=== PATIENT | female | born 1990 | race African-American/Black ===

== ENCOUNTER 2018-02-10 21:22 | Emergency (ER) | payer MEDICAID ==
[~2018-02-10] VITALS: Ht 172.7 cm; Wt 99.0 kg
[2018-02-10 21:27] VITALS: BP 119/72
== END 2018-02-11 01:19 | disposition left against medical advice (07) ==
LOC: ER 21:22
DX: Z53.21 Procedure and treatment not carried out due to patient leaving prior to being seen by health care provider (principal)

== ENCOUNTER 2018-02-11 02:06 | Emergency (ER) | payer MEDICAID ==
[~2018-02-11] VITALS: Ht 172.7 cm; Wt 114.0 kg
[2018-02-11 05:41] VITALS: BP 125/80
[2018-02-11] MEDS ORDERED: IBUPROFEN 600MG TABLET PO ONE (05:45)
== END 2018-02-11 07:11 | disposition home or self-care (01) ==
LOC: ER 02:06
DX: S86.012A Strain of left Achilles tendon, initial encounter (principal); X50.1XXA Overexertion from prolonged static or awkward postures, initial encounter; Y93.89 Activity, other specified; Y92.811 Bus as the place of occurrence of the external cause
CPT/HCPCS: 29515; 73610; 99284